=== PATIENT | female | born 2000 | race Two or more races ===

== ENCOUNTER 2023-10-03 09:05 | Emergency (ER) | payer MEDICAID, OTHER ==
[~2023-10-03] VITALS: Ht 165.1 cm; Wt 83.3 kg
[2023-10-03] MEDS ORDERED: IBUP-1456 PO (09:26)
[2023-10-03] MEDS ORDERED: AMOX875T4 PO (09:26)
[2023-10-03 09:30] VITALS: BP 130/86; PULSE 111; RESP 17; TEMP 98.4; O2SAT 99
== END 2023-10-03 09:39 | disposition home or self-care (01) ==
LOC: ER 09:05
DX: H66.92 Otitis media, unspecified, left ear (principal)